=== PATIENT | male | born 1960 | race Caucasian/White ===

== ENCOUNTER 2020-05-13 12:17 | Emergency (ER) | payer OTHER ==
[~2020-05-13] VITALS: Ht 190.5 cm; Wt 83.9 kg
[2020-05-13 12:20] VITALS: BP_SYST 160
[2020-05-13 12:45] VITALS: BP_SYST 160
== END 2020-05-13 12:45 | disposition home or self-care (01) ==
LOC: SED 12:17
DX: M79.602 Pain in left arm (principal)
CPT/HCPCS: 99281; 99282